=== PATIENT | female | born 1985 | race Caucasian/White ===

== ENCOUNTER 2024-01-16 10:08 | Inpatient (IN) | payer OTHER ==
[2024-01-16 10:46] VITALS: BMI 37.3
[2024-01-16] MEDS ORDERED: NICOTINE POLACRILEX 2 MG LOZENGE BC PRN (11:33)
[2024-01-16] MEDS ORDERED: IBUPROFEN 400 MG TABLET (FP) PO PRN (11:33)
[2024-01-16] MEDS ORDERED: BENZOCAINE/MENTHOL (CHLORASEPTIC ) LOZENGE MM PRN (11:33)
[2024-01-16] MEDS ORDERED: ONDANSETRON *ODT* 4 MG TABLET SL PRN (11:33)
[2024-01-16] MEDS ORDERED: guaiFENesin 600 MG TABLET.ER (FP) PO PRN (11:33)
[2024-01-16] MEDS ORDERED: POLYETHYLENE GLYCOL (HEALTHYLAX) 3350 17 GM PACKET PO PRN (11:33)
[2024-01-16] MEDS ORDERED: MAG HYDROX/AL HYDROX/SIMETH 30 ML UNIT-DOSE CUP PO PRN (11:33)
[2024-01-16] MEDS ORDERED: BISMUTH SUBSALICYLATE 524 MG/30 ML PO PRN (11:33)
[2024-01-16] MEDS ORDERED: NALOXONE HCL 0.4 MG/ML VIAL IM PRN (11:33)
[2024-01-16] MEDS ORDERED: NALOXONE HCL (KLOXXADO) 8 MG SPRAY NS PRN (11:33)
[2024-01-16] MEDS ORDERED: ACETAMINOPHEN 325 MG TABLET (FP) PO PRN (11:33)
[2024-01-16] MEDS ORDERED: LOPERAMIDE HCL 2 MG CAPSULE PO PRN (11:33)
[2024-01-16] MEDS ORDERED: DICYCLOMINE HCL 10 MG CAPSULE PO PRN (11:33)
[2024-01-16] MEDS ORDERED: BENZONATATE 200 MG CAPSULE PO PRN (11:33)
[2024-01-16] MEDS ORDERED: MAGNESIUM HYDROX 2400MG/30ML ORAL SUSPENSION 30 ML CUP PO PRN (11:33)
[2024-01-16] MEDS ORDERED: methaDONE HCL 10 MG TABLET (FOR DETOX USE ONLY) ONE (12:21)
[2024-01-16] MEDS ORDERED: BUPRENORPHINE/NALOXONE 0.5 MG/0.125 MG FILM ONE (12:21)
[2024-01-16] MEDS: methaDONE HCL 10 MG TABLET (FOR DETOX USE ONLY) PO ONE (12:25)
[2024-01-16] MEDS: BUPRENORPHINE/NALOXONE 0.5 MG/0.125 MG FILM SL ONE ×2 (12:26→22:26)
[2024-01-16] MEDS: hydrOXYzine PAMOATE 25 MG CAPSULE (FP) PO PRN (17:22)
[2024-01-16] MEDS: METHOCARBAMOL 500 MG TABLET PO PRN (17:22)
[2024-01-16] MEDS: MELATONIN 5 MG TABLETS PO SCH (22:24)
[2024-01-16] MEDS: THIAMINE 100 MG TABLET PO SCH (22:25)
[2024-01-16] MEDS: IBUPROFEN 600 MG TABLET (FP) PO PRN (23:17)
[2024-01-16] MEDS: cloNIDine HCL 0.1 MG TABLET PO PRN (23:31)
[2024-01-17] MEDS: BUPRENORPHINE/NALOXONE 0.5 MG/0.125 MG FILM SL SCH (09:39)
[2024-01-17] MEDS: PRENATAL VITAMINS W/ FOLIC ACID TABLET (FP) PO SCH (09:41)
[2024-01-17 11:38] LABS: HEMATOCRIT 36.9 % (32.4-45.2); HEMOGLOBIN 12.6 GM/dL (10.7-15.3); MCH 34.5 pg (25.7-33.7); MEAN CELL VOLUME 101.5 fl (80-96); MEAN PLT VOLUME 10.7 fl (7.5-11.1); PLATELET COUNT 248 10^3/uL (134-434); RBC 3.64 M/mm3 (3.60-5.2); RDW 14.4 % (11.6-15.6); WHITE BLOOD COUNT 4.5 K/mm3 (4.0-10.0)
[2024-01-17 11:43] LABS: POTASSIUM 4.5 mmol/L (3.5-5.1)
[2024-01-17 11:49] LABS: CALCIUM 9.6 mg/dL (8.5-10.1)
[2024-01-17 11:50] LABS: BLOOD UREA NITROGEN 17.1 mg/dL (7-18)
[2024-01-17 11:52] LABS: BILIRUBIN,TOTAL 0.5 mg/dL (0.2-1); TOT PROT 7.6 g/dl (6.4-8.2)
[2024-01-17 11:53] LABS: CREATININE 0.8 mg/dL (0.55-1.3)
[2024-01-17 13:23] VITALS: RESP 18; TEMP 98
[2024-01-17 14:47] VITALS: BP 155/100; PULSE 103
[2024-01-18] MEDS ORDERED: methaDONE HCL 10 MG TABLET (FOR DETOX USE ONLY) PO ONE (10:00)
[2024-01-18] MEDS ORDERED: BUPRENORPHINE/NALOXONE 2 MG/0.5 MG FILM PACKET SL SCH (10:00)
[2024-01-19] MEDS ORDERED: BUPRENORPHINE/NALOXONE 4 MG/1 MG FILM PACKET SL SCH (10:00)
[2024-01-20] MEDS ORDERED: BUPRENORPHINE/NALOXONE 8 MG/2 MG FILM PACKET SL SCH (10:00)
== END 2024-01-17 13:20 | disposition left against medical advice (07) | DRG 770 ==
LOC: YASAS 10:08 → Y6N 11:59
PROVIDERS: ADMIT Allergy & Immunology; ATTEND Surgery
PROC: HZ2ZZZZ Detoxification Services for Substance Abuse Treatment (ICD-10-PCS; principal; 2024-01-16)
DX: F11.23 Opioid dependence with withdrawal (principal); F17.210 Nicotine dependence, cigarettes, uncomplicated; F41.9 Anxiety disorder, unspecified
CPT/HCPCS: 36415; 80053; 80305; 80307; 81025; 85027; 86780; 93005; 93010; G0396